=== PATIENT | female | born 1970 | race Caucasian/White ===

== ENCOUNTER 2018-08-14 19:53 | Emergency (ER) | payer SELFPAY, OTHER | END 2018-08-14 22:16 | disposition home or self-care (01) | LOC: FER 19:53 ==

== ENCOUNTER 2024-04-04 16:27 | Emergency (ER) | payer OTHER ==
[2024-04-04 16:32] VITALS: TEMP 98; BMI 24.9
[2024-04-04] MEDS ORDERED: morphine SULFATE 4 MG/ML VIAL ONE (16:38)
[2024-04-04] MEDS ORDERED: ONDANSETRON 4 MG/2 ML VIAL ONE (16:38)
[2024-04-04] MEDS: ONDANSETRON 4 MG/2 ML VIAL IVPUSH ONE (16:40)
[2024-04-04] MEDS: morphine CARPU-JECT 4 MG/1 ML DISP.SYRIN IVPUSH ONE (16:42)
[2024-04-04 17:11] LABS: HEMATOCRIT 42.8 % (32.4-45.2); HEMOGLOBIN 14.2 G/dL (10.7-15.3); MCH 31.6 pg (25.7-33.7); MCHC 33.2 g/dl (32.0-36.0); MEAN PLT VOLUME 9.4 fl (7.5-11.1); PLATELET COUNT 298.1 10^3/uL (134-434); RDW 13.8 % (11.6-15.6); WHITE BLOOD COUNT 9.1 10^3/uL (4.0-10.8)
[2024-04-04 17:16] LABS: INR 0.96 (0.83-1.09)
[2024-04-04 17:19] LABS: ACTIVATED PTT 35.7 SECONDS (25.2-36.5)
[2024-04-04 17:20] LABS: ALBUMIN 4.7 g/dl (3.4-5.0); BILIRUBIN,TOTAL 0.5 mg/dl (0.2-1); CALCIUM 9.8 mg/dl (8.5-10.1); CREATININE 0.8 mg/dl (0.6-1.3); POTASSIUM 3.4 mmol/L (3.5-5.1); TOT PROT 7.9 g/dl (6.4-8.2)
[2024-04-04 17:47] LABS: PLATELET ESTIMATE ADEQUATE
[2024-04-04 17:55] LABS: N-TERMINAL BNP 35.1 pg/ml (5-125)
[2024-04-04 19:06] VITALS: BP 150/92; PULSE 75; RESP 16
== END 2024-04-04 19:20 | disposition home or self-care (01) ==
LOC: FER 16:27
PROC: 3E033NZ Introduction of Analgesics, Hypnotics, Sedatives into Peripheral Vein, Percutaneous Approach (ICD-10-PCS; principal; 2024-04-04)
PROC: 3E033GC Introduction of Other Therapeutic Substance into Peripheral Vein, Percutaneous Approach (ICD-10-PCS; 2024-04-04)
DX: T18.128A Food in esophagus causing other injury, initial encounter (principal); R07.2 Precordial pain; R11.2 Nausea with vomiting, unspecified; I10 Essential (primary) hypertension; Z20.822 Contact with and (suspected) exposure to COVID-19
CPT/HCPCS: 0241U-QW; 36415; 71045-TC-FY; 71275-TC; 74174-TC; 80053; 83690; 83880; 84484; 85027; 85379; 85610; 85730; 86850; 86900; 86901; 93005; 99285-25; Q9967